=== PATIENT | female | born 1985 | race Two or more races ===

== ENCOUNTER 2018-02-01 18:09 | Emergency (ER) | payer OTHER ==
[2018-02-01] MEDS ORDERED: ONDANSETRON 4 MG/2 ML VIAL IVP STA (18:47)
[2018-02-01] MEDS ORDERED: SODIUM CHLORIDE 0.9% 1,000 ML IV ONE (18:47)
[2018-02-01] MEDS ORDERED: KETOROLAC 30 MG/ML 1 ML VIAL IVP STA (18:47)
--- NOTE | 2018-02-01 18:50 | ED ---
Headache HPI - General Chief Complaint: Headache Stated Complaint: migraine Time Seen by Provider: 02/01/18 18:36 Mode of arrival: ambulatory Limitations: no limitations - History of Present Illness Initial Comments: 32-year-old female patient presents to the emergency department today for evaluation of migraine headache. Patient states that she frequently gets migraine headaches and is usually able to treat them herself at home. Patient states that this headache started about 3 hours ago. States that she did take 2 Excedrin Migraine and 2 Benadryl tablets. States that has not helped her headache. Patient states she is feeling nauseous but has not vomited. Patient denies any blurred or double vision. States that she is sensitive to light and sound. States that symptoms are consistent with her usual migraine pattern. Patient denies any recent rash, fever, chills, shortness breath, chest pain, abdominal pain, nausea, vomiting, diarrhea, constipation, back pain, numbness, tingling, dizziness, weakness, hematuria, dysuria, urinary urgency, urinary frequency, or any other complaints. She denies any chance of . - Related Data Home Medications Medication Instructions Recorded Confirmed Aspirin/Acetaminophen/Caffeine 1 tab PO DAILY PRN 02/01/18 02/01/18 [Excedrin Migraine Caplet] diphenhydrAMINE [Benadryl] 50 mg PO DAILY PRN 02/01/18 02/01/18 Allergies Allergy/AdvReac Type Severity Reaction Status Date / Time No Known Allergies Allergy Verified 02/01/18 18:38 Review of Systems ROS Statement: Those systems with pertinent positive or pertinent negative responses have been documented in the HPI. ROS Other: All systems not noted in ROS Statement are negative. Past Medical History Past Medical History: No Reported History Additional Past Medical History / Comment(s): migraines History of Any Multi-Drug Resistant Organisms: None Reported Past Surgical History: Section Past Psychological History: No Psychological Hx Reported Smoking Status: Current every day smoker Past Alcohol Use History: None Reported Past Drug Use History: None Reported General Exam Limitations: no limitations General appearance: alert, in no apparent distress, other (This is a well- developed, well-nourished adult female patient in no acute distress. Vital signs upon presentation are temperature 98.1F, pulse 80, respirations 20, blood pressure 111/73, pulse ox 100% on room air.) Eye exam: Present: normal appearance, PERRL, EOMI. Absent: scleral icterus, conjunctival injection, periorbital swelling ENT exam: Present: normal exam, normal oropharynx, mucous membranes moist Respiratory exam: Present: normal lung sounds bilaterally. Absent: respiratory distress, wheezes, rales, rhonchi, stridor Cardiovascular Exam: Present: regular rate, normal rhythm, normal heart sounds. Absent: systolic murmur, diastolic murmur, rubs, gallop, clicks GI/Abdominal exam: Present: soft, normal bowel sounds. Absent: distended, tenderness, guarding, rebound, rigid Neurological exam: Present: alert, oriented X3, CN II-XII intact, other ( Strength in all 4 extremities is 5/5.) Psychiatric exam: Present: normal affect, normal mood Skin exam: Present: warm, dry, intact, normal color. Absent: rash Course Vital Signs 02/01/18 02/01/18 18:16 19:54 Temperature 98.1 F 98.0 F Pulse Rate 80 68 Respiratory 20 16 Rate Blood Pressure 111/73 103/56 O2 Sat by Pulse 100 100 Oximetry Medical Decision Making - Medical Decision Making 32-year-old female patient presented to the emergency department today for evaluation of migraine headache. Physical examination was unremarkable. Patient is neurologically intact. Patient reports that symptoms are similar to her usual migraine pattern. Patient was given IV fluids pain medicine and nausea medicine here in the emergency department. Upon reevaluation patient states that her headache has resolved and she is feeling much better. She is instructed to follow-up with her primary care physician for recheck in 1-2 days. Return parameters were discussed in detail. She verbalizes understanding and agrees with this plan. Disposition Clinical Impression: Migraine headache Disposition: HOME SELF-CARE Condition: Good Instructions: Migraine Headache (ED) Additional Instructions: Increase fluids. Follow-up with your primary care physician for recheck in 1-2 days. Return here immediately for any new, worsening, or concerning symptoms. Is patient prescribed a controlled substance at d/c from ED?: No Referrals: Jeremy Levy MD [Primary Care Provider] - 1-2 days Time of Disposition: 19:45
[2018-02-01 19:56] VITALS: BP 103/56; PULSE 68; RESP 16; TEMP 98
== END 2018-02-01 19:55 | disposition home or self-care (01) ==
LOC: EC 18:09
DX: G43.909 Migraine, unspecified, not intractable, without status migrainosus (principal); F17.200 Nicotine dependence, unspecified, uncomplicated
CPT/HCPCS: 99283; 96374; 96375; 96361; J2405; J1885

== ENCOUNTER 2022-04-29 20:49 | Emergency (ER) | payer OTHER ==
[2022-04-29 20:52] VITALS: BP 137/87; PULSE 100; RESP 20; TEMP 97.6
[2022-04-29] MEDS ORDERED: AMOXIC-POT CLAV 875-125MG 1 EACH TAB PO STA (21:14)
[2022-04-29] MEDS ORDERED: KETOROLAC 15 MG/ML 1 ML VIAL IM STA (21:35)
--- NOTE | 2022-04-29 21:36 | ED ---
ENT HPI - General Chief complaint: Dental/Oral Stated complaint: abcess tooth Time Seen by Provider: 04/29/22 20:54 Source: patient Mode of arrival: ambulatory Limitations: no limitations - History of Present Illness Initial comments: Patient is a 37-year-old female presenting with chief complaint of dental pain. Patient is admitting to a few days of dental pain located on the lower right side. Patient has known dental caries in this area. She is unable to get into her dentist until Monday. She admits to increased swelling. No difficulty swallowing, fever, chills, nausea, vomiting, neck pain or stiffness, headache, vision or hearing changes, dizziness, weakness, chest pain, stridor, wheezing, difficulty breathing. Has been taking Motrin and Tylenol which is effective in alleviating her pain. - Related Data Home Medications Medication Instructions Recorded Confirmed Aspirin/Acetaminophen/Caffeine 1 tab PO DAILY PRN 02/01/18 02/01/18 [Excedrin Migraine Caplet] diphenhydrAMINE [Benadryl] 50 mg PO DAILY PRN 02/01/18 02/01/18 Previous Rx's Medication Instructions Recorded Amoxic-Pot Clav 875-125Mg 1 tab PO BID 7 Days #14 tab 04/29/22 [Augmentin 875-125] Allergies Allergy/AdvReac Type Severity Reaction Status Date / Time No Known Allergies Allergy Verified 02/01/18 18:38 Review of Systems ROS Statement: Those systems with pertinent positive or pertinent negative responses have been documented in the HPI. ROS Other: All systems not noted in ROS Statement are negative. Past Medical History Past Medical History: No Reported History Additional Past Medical History / Comment(s): migraines History of Any Multi-Drug Resistant Organisms: None Reported Past Surgical History: Section Past Psychological History: No Psychological Hx Reported Smoking Status: Current every day smoker Past Alcohol Use History: None Reported Past Drug Use History: None Reported General Exam Limitations: no limitations General appearance: alert, in no apparent distress Head exam: Present: atraumatic, normocephalic, normal inspection Eye exam: Present: normal appearance, PERRL, EOMI. Absent: scleral icterus, conjunctival injection, periorbital swelling Expanded Mouth exam: Present: tongue normal. Absent: drooling, trismus, muffled voice Teeth exam: Present: dental caries, gingival enlargement (Lower right side) Neck exam: Present: normal inspection, full ROM Respiratory exam: Present: normal lung sounds bilaterally. Absent: respiratory distress, wheezes, rales, rhonchi, stridor Cardiovascular Exam: Present: regular rate, normal rhythm, normal heart sounds. Absent: systolic murmur, diastolic murmur, rubs, gallop, clicks Neurological exam: Present: alert, oriented X3, CN II-XII intact Psychiatric exam: Present: normal affect, normal mood Skin exam: Present: warm, dry, intact, normal color. Absent: rash Course Vital Signs 04/29/22 20:50 Temperature 97.6 F Pulse Rate 100 Respiratory 20 Rate Blood Pressure 137/87 O2 Sat by Pulse 99 Oximetry Medical Decision Making - Medical Decision Making Patient is a 37-year-old female presenting with chief complaint of tooth pain. Patient has tenderness and swelling to the right lower sign. On examination there is clear dental abscess appreciated. Abscess is incised with an 18-gauge needle and draining. Patient is placed on Augmentin. She has an appointment with her dentist this Monday. I stressed the importance of follow-up and keeping this appointment. Take Motrin and Tylenol as needed for pain control. Follow-up with PCP. Report back to ER with any new or worsening symptoms. Discussed return parameters and answered all questions. Patient conveyed verbal understanding and agreed to the plan. I discussed this case in detail with my attending Dr. Conti Disposition Clinical Impression: Dental abscess Disposition: HOME SELF-CARE Condition: Good Instructions (If sedation given, give patient instructions): Dental Abscess (ED), Abscess Incision and Drainage (ED) Additional Instructions: Follow up with dentist. Report back to ER with any new or worsening symptoms. Take medication as prescribed. Alternate Motrin and Tylenol as needed for pain control. Prescriptions: Amoxic-Pot Clav 875-125Mg [Augmentin 875-125] 1 tab PO BID 7 Days #14 tab Is patient prescribed a controlled substance at d/c from ED?: No Referrals: Jeremy Levy MD [Primary Care Provider] - 1-2 days Time of Disposition: 21:36
== END 2022-04-29 21:51 | disposition home or self-care (01) ==
LOC: EC 20:49
DX: K04.7 Periapical abscess without sinus (principal); F17.200 Nicotine dependence, unspecified, uncomplicated
CPT/HCPCS: 99282 ×2; 96372 ×2; 41800; J1885